=== PATIENT | male | born 2000 | race Hispanic/Latino ===

== ENCOUNTER 2021-10-10 08:57 | Emergency (ER) | payer OTHER ==
[2021-10-10] MEDS ORDERED: Boostrix 0.5 ML (Tdap) VIAL ONE ×2 (09:09→09:16)
[2021-10-10] MEDS ORDERED: CEFAZOLIN 1 GM VIAL ONE ×2 (09:09→09:10)
[2021-10-10] MEDS ORDERED: Lorazepam 2 MG/ML VIAL ONE (09:16)
[2021-10-10] MEDS ORDERED: Lidocaine 1% w/Epinephrine 1:100K 20 ML VIAL ONE (09:30)
[2021-10-10] MEDS ORDERED: Silver Nitrate Application 1 EACH ONE ×2 (09:30)
== END 2021-10-10 11:05 | disposition home or self-care (01) ==
LOC: ERS 08:57
DX: S61.512A Laceration without foreign body of left wrist, initial encounter (principal); W26.8XXA Contact with other sharp object(s), not elsewhere classified, initial encounter
CPT/HCPCS: 12002; 90471; 90715; 96365; 96366; 96375; J0690; J2060

== ENCOUNTER 2021-11-06 20:35 | Inpatient (IN) | payer OTHER ==
[2021-11-06 21:41] LABS: #Basophils 0.1 thou/uL (0.0-0.2); #Eosinphils 0.1 thou/uL (0.0-0.7); #Lymphocytes 2.3 thou/uL (1.20-3.40); #Monocytes 0.8 thou/uL (0.11-0.59); #Neutrophils 4.9 thou/uL (1.40-6.50); %Basophils 0.8 % (0.0-1.0); %Eosinophils 1.6 % (0.0-10.0); %Lymphocytes 28.5 % (28.0-48.0); %Monocytes 9.8 % (0.0-4.0); %Neutrophils 59.4 % (31.0-61.0); Hemoglobin 14.6 g/dL (14.0-18.0); Mean Corpuscular HGB CONC 32.5 g/dL (32.0-36.0); Mean Corpuscular Hemoglobin 29.1 pg (25.0-35.0); Mean Corpuscular Volume 89.6 fL (78.0-98.0); Mean Platelet Volume 9.3 fL (7.4-10.4); Platelet Count 191 thou/uL (130-400); RBC Distribution Width 12.1 % (11.5-14.5); Red Blood Cell (RBC) Count 5.01 mill/uL (4.00-5.20); White Blood Cell (WBC) Count 8.2 thou/uL (4.8-10.8)
[2021-11-06 21:59] LABS: ALT (SGPT) 24 U/L (8-55); AST (SGOT) 23 U/L (5-34); Albumin 4.4 g/dL (3.5-5.0); Alkaline Phosphatase 89 U/L (50-130); Anion Gap 13 mmol/L (10-20); BUN (Urea Nitrogen) 11 mg/dL (8.9-20.6); Bilirubin, Total 0.5 mg/dL (0.2-1.2); Calc. Creatinine Clearance 0 mL/min (70-130); Calcium 9.5 mg/dL (7.8-10.44); Carbon Dioxide 27 mmol/L (22-29); Chloride 104 mmol/L (98-107); Glucose 96 mg/dL (70-105); Potassium 3.6 mmol/L (3.5-5.1); Protein, Total 7.4 g/dL (6.0-8.3); Sodium 140 mmol/L (136-145)
[2021-11-06 23:30] LABS: SARS-CoV-2 NAA Rapid Test Not Detected (NotDetected)
[2021-11-06 23:55] VITALS: BMI 21.4
[2021-11-07] MEDS ORDERED: Ondansetron PF 4 MG/2 ML Vial IVP PRN (06:50)
[2021-11-07] MEDS ORDERED: Acetaminophen 325 MG TAB PO PRN (06:50)
[2021-11-07] MEDS ORDERED: Lactated Ringer's 1,000 ML IV SCH (07:15)
[2021-11-07] MEDS: ceFAZolin 1 GM/D5W 1 GM in Premix Bag 1 BAG IVPB SCH ×3 (10:03→23:14)
[2021-11-07] MEDS ORDERED: Dexamethasone 20 MG/5 ML VIAL ONE (13:12)
[2021-11-07] MEDS ORDERED: PROPOFOL 200 MG/20 ML VIAL ONE (13:12)
[2021-11-07] MEDS ORDERED: Lidocaine 1% PF 5 ML VIAL ONE (13:12)
[2021-11-07] MEDS ORDERED: Ondansetron PF 4 MG/2 ML Vial ONE (13:12)
[2021-11-07] MEDS ORDERED: Heparin 5,000 UNITS/ML VIAL ONE (14:38)
[2021-11-07] MEDS ORDERED: CEFAZOLIN 1 GM VIAL ONE (15:30)
[2021-11-07] MEDS ORDERED: Sodium Chloride 0.9% 100 ML ONE (15:31)
[2021-11-07] MEDS ORDERED: Fentanyl 100 MCG/2 ML VIAL ONE (15:36)
[2021-11-07] MEDS ORDERED: Meperidine HCl/PF 25 MG/ML VIAL ONE (16:44)
[2021-11-07] MEDS ORDERED: traMADol HCl 50 MG TAB PO PRN (17:51)
[2021-11-07] MEDS ORDERED: Fentanyl 100 MCG/2 ML VIAL SLOW IVP PRN (17:51)
[2021-11-07] MEDS: Ibuprofen 800 MG TAB PO SCH (18:59)
[2021-11-08] MEDS: Ibuprofen 800 MG TAB PO SCH (01:22)
[2021-11-08 03:42] VITALS: BP 128/73; TEMP 97.7
[2021-11-08] MEDS ORDERED: CEFAZOLIN 1 GM in Sodium Chloride 0.9% 100 ML IVPB SCH (08:00)
== END 2021-11-08 08:30 | disposition home or self-care (01) | DRG 253 ==
LOC: ERS 20:35 → SJJU 22:12
PROVIDERS: ADMIT Internal Medicine; ATTEND Internal Medicine
PROC: 03V Upper Arteries, Restriction (ICD-10-PCS; principal; 2021-11-07)
PROC: 03CA0ZZ Extirpation of Matter from Left Ulnar Artery, Open Approach (ICD-10-PCS; 2021-11-07)
DX: I72.1 Aneurysm of artery of upper extremity (principal); I74.2 Embolism and thrombosis of arteries of the upper extremities; Z20.822 Contact with and (suspected) exposure to COVID-19; Z87.820 Personal history of traumatic brain injury
CPT/HCPCS: 36415; 76936; 80053; 85025; C1776; J0690; J1100; J1644; J2175; J2405; J2704; J3010; J3490; J7120; U0002